=== PATIENT | male | born 2000 | race Caucasian/White ===

== ENCOUNTER 2021-04-24 16:20 | Emergency (ER) | payer OTHER ==
[~2021-04-24 16:20] MED LIST: CLINDAMYCIN HC300 MG PO
[2021-04-24 18:32] LABS: RED BLOOD COUNT 5.26 M/UL (4.20-5.50); WHITE BLOOD COUNT 11.5 K/UL (4.5-11.0)
[2021-04-24 18:42] LABS: BUN/CREATININE RATIO 11 (0-10)
== END 2021-04-24 20:25 | disposition home or self-care (01) ==
LOC: ER1 16:20
PROVIDERS: Family Medicine
DX: R07.89 Other chest pain (principal); R00.2 Palpitations; F41.9 Anxiety disorder, unspecified
CPT/HCPCS: 71045; 80053; 82550; 82553; 83874; 84439; 84443; 84484; 85025; 93005; 99285